=== PATIENT | female | born 1990 | race Caucasian/White ===

== ENCOUNTER 2025-08-27 08:43 | Outpatient (CLI) | payer OTHER ==
[2025-08-27] MEDS ORDERED: iohexol 300mg/ml 100ml inj. ONE (08:54)
--- NOTE | 2025-08-27 12:22 | RADIOLOGY REPORT ---
CLINICAL HISTORY: NEOPLASM OF UNCERTAIN BEHAVIOR OF OTH DIGESTIVE ORGANS TECHNIQUE: CT of the abdomen and pelvis was performed without and with intravenous contrast. 100 mL Omnipaque 300 injected. This exam was performed according to our departmental dose optimization program. Up-to-date CT equipment and radiation dose reduction techniques are utilized as appropriate. CTDIVol: 25.43+ 25.43+ 0.14 mGy DLP: 2720.67 mGy-cm WID: COMPARISON: None FINDINGS: Lower Thorax: Unremarkable. Liver and Biliary system: Unremarkable. Spleen: Unremarkable. Adrenal Glands and Kidneys: There is a tiny right adrenal gland adenoma measuring 9.6 mm on series 4, image 28. The left adrenal gland is unremarkable. There is no hydronephrosis or nephrolithiasis. Pancreas and Retroperitoneum: Unremarkable. Aorta and Major Vessels: Unremarkable. Bowel, Mesentery and Peritoneal space: Normal caliber small and large bowel. Normal size appendix. There is mild mucosal enhancement of the distal aspect of the appendix (series 604, image 45). There is mild wall thickening and enhancement of a segment of ascending and proximal to mid transverse colon. There is no free intraperitoneal air fluid collection. Pelvis: There are multiple fibroids in the uterus. The ovaries are grossly unremarkable. There is no pelvic lymphadenopathy. Urinary bladder is mildly distended. Abdominal wall and Osseous Structures: No destructive osseous lesion. There is mild fluid overlying the low rectus abdominus muscle (series 4, image 87) mesh in the low anterior abdominal wall. No well-formed fluid collection. No enhancing soft tissue. Small fat containing umbilical hernia. IMPRESSION: 1. Mild mucosal enhancement and thickening of a long segment of ascending and proximal to mid colon which could reflect infectious or inflammatory colitis. 2. There appears to be mesh in the lower anterior abdominal wall. Correlate with surgical history. 3. No discrete enhancing lesion or lymphadenopathy. 4. Small amount of fluid overlying the lower rectus abdominus muscle. No well- formed fluid collection is seen to suggest abscess. 5. Fibroid uterus. 6. Tiny right adrenal gland adenoma.
== END 2025-08-27 23:59 | disposition home or self-care (01) ==
LOC: RAD 08:43
PROVIDERS: ATTEND Surgery
DX: D35.01 Benign neoplasm of right adrenal gland (principal); D37.8 Neoplasm of uncertain behavior of other specified digestive organs; D25.9 Leiomyoma of uterus, unspecified; K63.89 Other specified diseases of intestine; N32.89 Other specified disorders of bladder; K42.9 Umbilical hernia without obstruction or gangrene
CPT/HCPCS: 74178; Q9967; A4615